=== PATIENT | female | born 1935 | race Caucasian/White ===

== ENCOUNTER 2020-08-26 10:33 | Outpatient (CLI) | payer MEDICARE, OTHER | END 2020-08-26 10:34 | disposition home or self-care (01) | LOC: CSHMRI 10:33 | PROVIDERS: ATTEND Nurse Practitioner Family | DX: M54.14 Radiculopathy, thoracic region (principal); M47.814 Spondylosis without myelopathy or radiculopathy, thoracic region; M51.25 Other intervertebral disc displacement, thoracolumbar region; J90 Pleural effusion, not elsewhere classified | CPT/HCPCS: 72146 ==

== ENCOUNTER → 2020-12-22 | Day surgery (SDC) | payer MEDICARE, OTHER ==
[~2020-12-22] MED LIST: Acetaminophen 500 MG TAB ONE; diphenhydrAMINE 50 MG/ML VIAL ONE
== END ==
LOC: CSHSDC/OP 16:43
PROVIDERS: ATTEND Specialist
DX: U07.1 COVID-19 (principal); Z23 Encounter for immunization
CPT/HCPCS: 96365; 96374; J1200; J3490; M0243; Q0244

== ENCOUNTER 2021-05-22 11:07 | Inpatient (IN) | payer MEDICARE, OTHER ==
[2021-05-22] MEDS ORDERED: Furosemide 40 MG/4 ML VIAL ONE (12:07)
[2021-05-22] MEDS ORDERED: Nitroglycerin 2% Ointment 1 INCH/1 GM Packet ONE (12:07)
[2021-05-22 12:46] LABS: #Basophils 0.1 10x3/uL (0.0-0.2); #Monocytes 0.8 10x3/uL (0.0-1.1); #Neutrophils 5.9 10x3/uL (1.5-8.4); %Basophils 1.3 % (0.0-2.0); %Eosinophils 0.5 % (0.0-6.0); %Lymphocytes 11.7 % (18.0-47.0); %Neutrophils 76.2 % (40.0-75.0); Hemoglobin 12.5 g/dL (12.0-15.5); Mean Corpuscular Hemoglobin 31.6 pg (27.0-33.0); Mean Corpuscular Volume 98.7 fl (81.6-98.3); Mean Platelet Volume 11.6 fl (7.4-10.4); Platelet Count 347 10x3/uL (150-450); RBC Distribution Width 16.5 % (11.5-14.5); Red Blood Cell (RBC) Count 3.96 10x6/uL (3.90-5.03); White Blood Cell (WBC) Count 7.7 10x3/uL (3.5-10.5)
[2021-05-22 13:03] LABS: ALT (SGPT) 23 U/L (8-55); AST (SGOT) 24 U/L (5-34); Alkaline Phosphatase 95 U/L (40-110); Anion Gap 15 mmol/L (10-20); BUN (Urea Nitrogen) 23 mg/dL (9.8-20.1); Bilirubin, Total 0.7 mg/dL (0.2-1.2); CK (CPK) 59 U/L (29-168); Calc. Creatinine Clearance 0 mL/min (70-130); Calcium 9.1 mg/dL (7.8-10.44); Carbon Dioxide 25 mmol/L (23-31); Chloride 108 mmol/L (98-107); Globulin 2.2 g/dL (2.4-3.5); Glucose 123 mg/dL (83-110); Potassium 4.3 mmol/L (3.5-5.1); Protein, Total 6.2 g/dL (5.8-8.1); Sodium 144 mmol/L (136-145)
[2021-05-22] MEDS ORDERED: Senokot S 8.6-50 MG TAB PO PRN (14:19)
[2021-05-22] MEDS ORDERED: Calcium Carbonate 500 MG ChewTAB PO PRN (14:19)
[2021-05-22] MEDS ORDERED: Ondansetron ODT 4 MG TAB PO PRN (14:19)
[2021-05-22 14:55] LABS: SARS-CoV-2 NAA Rapid Test Not Detected (NotDetected)
[2021-05-22] MEDS ORDERED: Acetaminophen 500 MG TAB ONE (15:40)
[2021-05-22 16:18] LABS: Troponin I Less than 0.010 ng/mL (< 0.028)
[2021-05-22 19:33] LABS: Troponin I Less than 0.010 ng/mL (< 0.028)
[2021-05-22] MEDS ORDERED: Pravastatin Sodium 20 MG TAB PO SCH (21:00)
[2021-05-22] MEDS: Simvastatin 10 MG TAB PO SCH (21:39)
[2021-05-22] MEDS: Apixaban 2.5 MG TAB PO SCH (21:39)
[2021-05-22] MEDS: Nitroglycerin 2% Ointment 1 INCH/1 GM Packet TOP SCH (22:31)
[2021-05-23] MEDS: Acetaminophen 325 MG TAB PO PRN (04:30)
[2021-05-23 04:53] LABS: #Basophils 0.1 10x3/uL (0.0-0.2); #Eosinphils 0.2 10x3/uL (0.0-0.5); #Monocytes 0.9 10x3/uL (0.0-1.1); #Neutrophils 5.1 10x3/uL (1.5-8.4); %Basophils 1.5 % (0.0-2.0); %Eosinophils 2.1 % (0.0-6.0); %Lymphocytes 13.1 % (18.0-47.0); %Monocytes 12.8 % (0.0-10.0); %Neutrophils 70.1 % (40.0-75.0); Hemoglobin 11.5 g/dL (12.0-15.5); Mean Corpuscular HGB CONC 31.9 g/dL (32.0-36.0); Mean Corpuscular Hemoglobin 31.3 pg (27.0-33.0); Mean Corpuscular Volume 98.4 fl (81.6-98.3); Mean Platelet Volume 11.8 fl (7.4-10.4); Platelet Count 290 10x3/uL (150-450); RBC Distribution Width 16.1 % (11.5-14.5); Red Blood Cell (RBC) Count 3.67 10x6/uL (3.90-5.03); White Blood Cell (WBC) Count 7.3 10x3/uL (3.5-10.5)
[2021-05-23 05:07] LABS: Anion Gap 16 mmol/L (10-20); BUN (Urea Nitrogen) 19 mg/dL (9.8-20.1); Calc. Creatinine Clearance 35 mL/min (70-130); Calcium 8.5 mg/dL (7.8-10.44); Carbon Dioxide 26 mmol/L (23-31); Chloride 107 mmol/L (98-107); Glucose 119 mg/dL (83-110); Potassium 3.6 mmol/L (3.5-5.1); Sodium 145 mmol/L (136-145)
[2021-05-23] MEDS: Levothyroxine Sodium 75 MCG TAB PO SCH (06:10)
[2021-05-23] MEDS: Furosemide 40 MG/4 ML VIAL SLOW IVP SCH ×2 (06:10→15:06)
[2021-05-23] MEDS: Nitroglycerin 2% Ointment 1 INCH/1 GM Packet TOP SCH (06:23)
[2021-05-23] MEDS ORDERED: TELMISARTAN 80 MG PO SCH (09:00)
[2021-05-23] MEDS: Aspirin 81 mg Enteric Coated Tablet PO SCH (09:25)
[2021-05-23] MEDS: Apixaban 2.5 MG TAB PO SCH ×2 (09:25→21:51)
[2021-05-23] MEDS: Losartan Potassium 50 MG TAB PO SCH (09:25)
[2021-05-23] MEDS: Leflunomide 10 mg Tablet PO SCH (09:26)
[2021-05-23] MEDS: Simvastatin 10 MG TAB PO SCH (21:51)
[2021-05-24 04:50] LABS: Anion Gap 15 mmol/L (10-20); BUN (Urea Nitrogen) 21 mg/dL (9.8-20.1); Calc. Creatinine Clearance 35 mL/min (70-130); Calcium 8.7 mg/dL (7.8-10.44); Carbon Dioxide 33 mmol/L (23-31); Chloride 100 mmol/L (98-107); Glucose 102 mg/dL (83-110); Sodium 145 mmol/L (136-145)
[2021-05-24 04:56] LABS: Potassium 2.8 mmol/L (3.5-5.1)
[2021-05-24 05:04] LABS: Hemoglobin 12.5 g/dL (12.0-15.5); Mean Corpuscular HGB CONC 33.2 g/dL (32.0-36.0); Mean Corpuscular Hemoglobin 32.1 pg (27.0-33.0); Mean Corpuscular Volume 96.4 fl (81.6-98.3); Mean Platelet Volume 11.8 fl (7.4-10.4); Platelet Count 319 10x3/uL (150-450); RBC Distribution Width 16.3 % (11.5-14.5); White Blood Cell (WBC) Count 6.9 10x3/uL (3.5-10.5)
[2021-05-24] MEDS: Levothyroxine Sodium 75 MCG TAB PO SCH (06:05)
[2021-05-24] MEDS: Furosemide 40 MG/4 ML VIAL SLOW IVP SCH (06:05)
[2021-05-24 06:09] LABS: MDiff Complete? YES
[2021-05-24 06:11] LABS: Band 3 % (5-11); Lymphocytes 10 % (21-51); Neutrophil 58 % (42-75); Reactive Lymphocytes 6 % (0-10)
[2021-05-24 06:12] LABS: Eosinophils 5 % (0-10); Monocytes 17 % (0-10)
[2021-05-24 06:13] LABS: Ovalocytes SLIGHT = 2-5 cells (100X) (0-1/hpf); Platelet Morphology Comment Appears Adequate
[2021-05-24] MEDS ORDERED: Potassium Chloride 20 MEQ TAB PO SCH ×2 (07:45→12:00)
[2021-05-24] MEDS: Aspirin 81 mg Enteric Coated Tablet PO SCH (10:32)
[2021-05-24] MEDS: Apixaban 2.5 MG TAB PO SCH ×2 (10:32→20:19)
[2021-05-24] MEDS: Losartan Potassium 50 MG TAB PO SCH (10:32)
[2021-05-24] MEDS: Leflunomide 10 mg Tablet PO SCH (10:33)
[2021-05-24] MEDS: Acetaminophen 325 MG TAB PO PRN (11:44)
[2021-05-24 14:34] LABS: Anion Gap 16 mmol/L (10-20); BUN (Urea Nitrogen) 22 mg/dL (9.8-20.1); Calc. Creatinine Clearance 28 mL/min (70-130); Calcium 9.4 mg/dL (7.8-10.44); Carbon Dioxide 31 mmol/L (23-31); Chloride 99 mmol/L (98-107); Glucose 112 mg/dL (83-110); Potassium 3.4 mmol/L (3.5-5.1); Sodium 143 mmol/L (136-145)
[2021-05-24] MEDS: Simvastatin 10 MG TAB PO SCH (20:19)
[2021-05-25 04:38] LABS: Hemoglobin 12.4 g/dL (12.0-15.5); Mean Corpuscular HGB CONC 33.2 g/dL (32.0-36.0); Mean Corpuscular Hemoglobin 32.3 pg (27.0-33.0); Mean Corpuscular Volume 97.1 fl (81.6-98.3); Mean Platelet Volume 11.9 fl (7.4-10.4); Platelet Count 307 10x3/uL (150-450); RBC Distribution Width 16.6 % (11.5-14.5); Red Blood Cell (RBC) Count 3.84 10x6/uL (3.90-5.03); White Blood Cell (WBC) Count 6.3 10x3/uL (3.5-10.5)
[2021-05-25 04:56] LABS: Anion Gap 16 mmol/L (10-20); BUN (Urea Nitrogen) 30 mg/dL (9.8-20.1); Calc. Creatinine Clearance 21 mL/min (70-130); Calcium 8.4 mg/dL (7.8-10.44); Carbon Dioxide 29 mmol/L (23-31); Chloride 101 mmol/L (98-107); Glucose 102 mg/dL (83-110); Sodium 142 mmol/L (136-145)
[2021-05-25 05:00] LABS: Potassium 4.1 mmol/L (3.5-5.1)
[2021-05-25 05:03] LABS: MDiff Complete? YES
[2021-05-25 05:13] LABS: Band 2 % (5-11); Eosinophils 2 % (0-10); Lymphocytes 14 % (21-51); Monocytes 12 % (0-10); Neutrophil 68 % (42-75); Reactive Lymphocytes 2 % (0-10)
[2021-05-25 05:15] LABS: Large Platelets SLIGHT; Platelet Morphology Comment Appears Adequate
[2021-05-25 05:16] LABS: RBC Morphology Normal
[2021-05-25] MEDS: Levothyroxine Sodium 75 MCG TAB PO SCH (06:03)
[2021-05-25] MEDS: Losartan Potassium 50 MG TAB PO SCH (09:03)
[2021-05-25] MEDS: Aspirin 81 mg Enteric Coated Tablet PO SCH (09:03)
[2021-05-25] MEDS: Apixaban 2.5 MG TAB PO SCH ×2 (09:04→20:26)
[2021-05-25] MEDS: Leflunomide 10 mg Tablet PO SCH (09:05)
[2021-05-25] MEDS ORDERED: PROPOFOL 200 MG/20 ML VIAL ONE (11:00)
[2021-05-25] MEDS ORDERED: Flecainide 50 MG TAB PO SCH (12:00)
[2021-05-25] MEDS ORDERED: Lidocaine 1% PF 5 ML VIAL ONE (15:47)
[2021-05-25] MEDS ORDERED: PROPOFOL 0 ML ONE (15:47)
[2021-05-25] MEDS: Simvastatin 10 MG TAB PO SCH (20:26)
[2021-05-25] MEDS: Flecainide 50 MG TAB PO SCH (20:27)
[2021-05-26] MEDS: Acetaminophen 325 MG TAB PO PRN ×2 (01:46→19:52)
[2021-05-26 04:20] LABS: Hemoglobin 11.1 g/dL (12.0-15.5); Mean Corpuscular HGB CONC 32.6 g/dL (32.0-36.0); Mean Corpuscular Hemoglobin 31.8 pg (27.0-33.0); Mean Corpuscular Volume 97.7 fl (81.6-98.3); Mean Platelet Volume 11.6 fl (7.4-10.4); Platelet Count 308 10x3/uL (150-450); RBC Distribution Width 16.5 % (11.5-14.5); Red Blood Cell (RBC) Count 3.49 10x6/uL (3.90-5.03); White Blood Cell (WBC) Count 6.1 10x3/uL (3.5-10.5)
[2021-05-26 04:37] LABS: MDiff Complete? YES
[2021-05-26 04:40] LABS: Band 1 % (5-11); Eosinophils 2 % (0-10); Lymphocytes 8 % (21-51); Monocytes 16 % (0-10); Neutrophil 69 % (42-75); Reactive Lymphocytes 3 % (0-10)
[2021-05-26 04:41] LABS: Ovalocytes SLIGHT = 2-5 cells (100X) (0-1/hpf); Platelet Morphology Comment Appears Adequate
[2021-05-26 04:44] LABS: Anion Gap 15 mmol/L (10-20); BUN (Urea Nitrogen) 33 mg/dL (9.8-20.1); Calc. Creatinine Clearance 25 mL/min (70-130); Calcium 7.9 mg/dL (7.8-10.44); Carbon Dioxide 26 mmol/L (23-31); Chloride 104 mmol/L (98-107); Glucose 95 mg/dL (83-110); Potassium 3.1 mmol/L (3.5-5.1); Sodium 142 mmol/L (136-145)
[2021-05-26] MEDS ORDERED: Levothyroxine Sodium 100 MCG TAB PO SCH (06:00)
[2021-05-26 06:05] VITALS: BMI 21.4
[2021-05-26] MEDS ORDERED: Potassium Chloride 20 MEQ TAB PO SCH (06:15)
[2021-05-26] MEDS: Potassium Chloride 20 MEQ in Premix Bag 1 BAG IVPB SCH ×2 (06:29→10:43)
[2021-05-26 07:04] LABS: Magnesium 1.6 mg/dL (1.6-2.6)
[2021-05-26] MEDS ORDERED: Magnesium 2 GM/50 ML 2 GM in Sodium Chloride 0.9% 100 ML IVPB SCH (10:00)
[2021-05-26] MEDS: Losartan Potassium 50 MG TAB PO SCH (10:46)
[2021-05-26] MEDS: Flecainide 50 MG TAB PO SCH (10:47)
[2021-05-26] MEDS: Apixaban 2.5 MG TAB PO SCH (10:47)
[2021-05-26] MEDS: Leflunomide 10 mg Tablet PO SCH (10:59)
[2021-05-26 17:05] VITALS: BP 137/65; TEMP 97.7
== END 2021-05-26 20:18 | disposition home or self-care (01) | DRG 291 ==
LOC: CSHERS 11:07 → CSHTELE 18:04
PROVIDERS: ADMIT Family Medicine; ATTEND Family Medicine
PROC: 5A2204Z Restoration of Cardiac Rhythm, Single (ICD-10-PCS; principal; 2021-05-25)
DX: I13.0 Hypertensive heart and chronic kidney disease with heart failure and stage 1 through stage 4 chronic kidney disease, or unspecified chronic kidney disease (principal); I50.33 Acute on chronic diastolic (congestive) heart failure; C81.90 Hodgkin lymphoma, unspecified, unspecified site; N18.4 Chronic kidney disease, stage 4 (severe); Z20.822 Contact with and (suspected) exposure to COVID-19; I48.91 Unspecified atrial fibrillation; E03.9 Hypothyroidism, unspecified; M06.9 Rheumatoid arthritis, unspecified; E78.5 Hyperlipidemia, unspecified; I49.5 Sick sinus syndrome; I16.0 Hypertensive urgency; E87.6 Hypokalemia; Z92.21 Personal history of antineoplastic chemotherapy; Z88.2 Allergy status to sulfonamides; Z88.1 Allergy status to other antibiotic agents; Z79.82 Long term (current) use of aspirin; Z79.01 Long term (current) use of anticoagulants; Z79.899 Other long term (current) drug therapy; Z98.890 Other specified postprocedural states
CPT/HCPCS: 36415; 71045; 80048; 80053; 82550; 83735; 83880; 84439; 84443; 84484; 85025; 92960; 93005; 93010; 93306; 94760; 96374; 96375; 96376; 97139; J1940; J2704; J3475; J3480; J3490; U0002

== ENCOUNTER 2021-07-24 21:08 | Inpatient (IN) | payer MEDICARE, OTHER ==
[2021-07-25 02:06] VITALS: BMI 20.3
[2021-07-26 12:46] VITALS: TEMP 97.6
[2021-07-26 14:03] VITALS: BP 132/71
== END 2021-07-26 14:58 | disposition home or self-care (01) | DRG 291 ==
LOC: CSHERS 21:08 → CSHTELE 07-25 02:01 → OBSVTOIN 07-25 02:01
PROVIDERS: ADMIT Internal Medicine; ATTEND Family Medicine
DX: I11.0 Hypertensive heart disease with heart failure (principal); J96.01 Acute respiratory failure with hypoxia; I50.31 Acute diastolic (congestive) heart failure; E03.9 Hypothyroidism, unspecified; E78.5 Hyperlipidemia, unspecified; M06.9 Rheumatoid arthritis, unspecified; I16.0 Hypertensive urgency; E87.6 Hypokalemia; I73.9 Peripheral vascular disease, unspecified; I48.0 Paroxysmal atrial fibrillation; Z88.2 Allergy status to sulfonamides; Z79.82 Long term (current) use of aspirin; Z79.899 Other long term (current) drug therapy; Z98.890 Other specified postprocedural states; Z85.71 Personal history of Hodgkin lymphoma; Z79.01 Long term (current) use of anticoagulants; Z92.21 Personal history of antineoplastic chemotherapy
CPT/HCPCS: 36415; 71045; 80053; 82553; 83735; 83880; 84439; 84443; 84484; 85025; 93005; 93010; 93306; 96374; J0360; J1940; U0003; U0005